=== PATIENT | female | born 1945 | race Caucasian/White ===

== ENCOUNTER → 2016-09-28 | Outpatient (CLI) | payer MEDICARE ==
--- NOTE | 2016-09-28 16:30 | US ---
EXAMINATION TYPE: US carotid duplex BILAT DATE OF EXAM: 09/28/2016 COMPARISON: NONE CLINICAL HISTORY: 71-year-old female I65.23 Stenosis of bilateral carotid arteries. Stenosis TECHNIQUE: Carotid duplex ultrasound examination. Indirect Doppler criteria was utilized. FINDINGS: Soria scale images show minimal to mild atherosclerotic change at the bifurcations. EXAM MEASUREMENTS: RIGHT: Peak Systolic Velocity (PSV) cm/sec ----- Right CCA: 109.3 ----- Right ICA: 76.6 ----- Right ECA: 93.9 ICA/CCA ratio: 0.7 RIGHT: End Diastole cm/sec ----- Right CCA: 36.5 ----- Right ICA: 26.5 ----- Right ECA: 22.7 LEFT: Peak Systolic Velocity (PSV) cm/sec ----- Left CCA: 73.4 ----- Left ICA: 83.1 ----- Left ECA: 85.1 ICA/CCA ratio: 1.1 LEFT: End Diastole cm/sec ----- Left CCA: 30.5 ----- Left ICA: 33.2 ----- Left ECA: 15.9 VERTEBRALS (direction of flow): Right Vertebral: Antegrade Left Vertebral: Antegrade IMPRESSION: No hemodynamically significant stenosis appreciated in either internal carotid artery. Criteria for Assigning % of Stenosis / Diameter reduction (Estimation based on the indirect measurements of the internal carotid artery velocities (ICA PSV). 1. Normal (no stenosis)=ICA PSV < 125 cm/s: ratio < 2.0: ICA EDV<40 cm/s. 2. Less than 50% stenosis=ICA PSV < 125 cm/s: ratio < 2.0: ICA EDV<40 cm/s. 3. 50 to 69% stenosis=ICA PSV of 125 to 230 cm/s: ration 2.0 ? 4.0: ICA EDV 40-100 cm/s. 4. Greater than 70% stenosis to near occlusion= ICA PSV > 230 cm/s: ratio > 4.0: ICA EDV > 100 cm/s. 5. Near occlusion= ICA PSV velocities may be low or undetectable: variable ratio and ICA EDV. 6. Total occlusion=unable to detect flow.
--- NOTE | 2016-09-28 17:32 | ECHOF ---
Referral Reason:I65.23 Stenosis of bilateral carotid arteries MEASUREMENTS -------- HEIGHT: 172.7 cm WEIGHT: 99.8 kg BP: 132/63 RVIDd: 3.0 cm (< 3.3) IVSd: 1.0 cm (0.6 - 1.1) LVIDd: 4.1 cm (3.9 - 5.3) LVPWd: 1.1 cm (0.6 - 1.1) IVSs: 1.7 cm LVIDs: 2.8 cm LVPWs: 1.3 cm LA Diam: 3.8 cm (2.7 - 3.8) LAESV Index (A-L): 23.79 ml/m Ao Diam: 3.0 cm (2.0 - 3.7) AV Cusp: 2.0 cm (1.5 - 2.6) MV EXCURSION: 13.991 mm (> 18.000) MV EF SLOPE: 37 mm/s (70 - 150) EPSS: 0.5 cm MV E Mendoza: 0.95 m/s MV DecT: 148 ms MV A Mendoza: 1.15 m/s MV E/A Ratio: 0.83 AV maxP.52 mmHg AV maxP.52 mmHg AV meanP.32 mmHg RAP: 5.00 mmHg RVSP: 15.28 mmHg FINDINGS -------- Sinus rhythm. This was a technically good study. The left ventricular size is normal. There is borderline concentric left ventricular hypertrophy. Overall left ventricular systolic function is normal with, an EF between 60 - 65 %. The right ventricle is normal in size and function. Normal LA size by volume 22+/-6 ml/m2. The right atrium is normal in size. There is mild aortic valve sclerosis. Peak/mean gradient across the Aortic Valve is 14.52mmHg / 6.32mmHg. The mitral valve leaflets are mildly thickened. Trace tricuspid regurgitation present. Right ventricular systolic pressure is normal at < 35 mmHg. The pulmonic valve was not well visualized. The aortic root size is normal. Normal inferior vena cava with normal inspiratory collapse consistent with estimated right atrial pressure of 5 mmHg. The pericardium is normal. CONCLUSIONS -------- 1. Sinus rhythm. 2. Peak/mean gradient across the Aortic Valve is 14.52mmHg / 6.32mmHg. 3. The mitral valve leaflets are mildly thickened. 4. Trace tricuspid regurgitation present. 5. Right ventricular systolic pressure is normal at < 35 mmHg. 6. The pulmonic valve was not well visualized. 7. The aortic root size is normal. 8. Normal inferior vena cava with normal inspiratory collapse consistent with estimated right atrial pressure of 5 mmHg. 9. The pericardium is normal. 10. This was a technically good study. 11. The left ventricular size is normal. 12. There is borderline concentric left ventricular hypertrophy. 13. Overall left ventricular systolic function is normal with, an EF between 60 - 65 %. 14. The right ventricle is normal in size and function. 15. Normal LA size by volume 22+/-6 ml/m2. 16. The right atrium is normal in size. 17. There is mild aortic valve sclerosis. INTERNAL MEDICINE VETERINARY TECHNICIAN: Mela Cash RDCS
== END | disposition home or self-care (01) ==
LOC: RADECHMAIN 14:58
PROVIDERS: ATTEND Internal Medicine
DX: I65.23 Occlusion and stenosis of bilateral carotid arteries (principal); I08.2 Rheumatic disorders of both aortic and tricuspid valves
CPT/HCPCS: 93306; 93880

== ENCOUNTER → 2018-12-17 | Outpatient (CLI) | payer MEDICARE ==
--- NOTE | 2018-12-17 15:15 | US ---
EXAMINATION TYPE: US pelvic complete DATE OF EXAM: 12/17/2018 COMPARISON: US CLINICAL HISTORY: N95.0 POST MENOPAUSAL BLEEDING. Pt states light vaginal bleeding recently x 1 day, pt not on HRT's TECHNIQUE: Transabdominal (TA). Transabdominal sonographic images of the pelvis were acquired. Date of LMP: age 47 EXAM MEASUREMENTS: Uterus: 7.3 x 2.5 x 4.5 cm Endometrial Stripe: 0.3 cm Right Ovary: 1.1 x 0.8 x 1.3 cm Left Ovary: 1.4 x 0.6 x 1.4 cm 1. Uterus: Anteverted Appeared wnl 2. Endometrium: wnl 3. Right Ovary: wnl 4. Left Ovary: wnl 5. Bilateral Adnexa: wnl 6. Posterior cul-de-sac: wnl IMPRESSION: Normal pelvic ultrasound
== END | disposition home or self-care (01) ==
LOC: RADUSWWP 12:00
PROVIDERS: ATTEND Obstetrics & Gynecology
DX: N95.0 Postmenopausal bleeding (principal)
CPT/HCPCS: 76856

== ENCOUNTER → 2022-02-22 | Outpatient (CLI) | payer MEDICARE | END | disposition home or self-care (01) | LOC: RADMAMWWP 07:54 | PROVIDERS: ATTEND Internal Medicine | DX: Z53.9 Procedure and treatment not carried out, unspecified reason (principal) ==

== ENCOUNTER → 2022-03-01 | Outpatient (CLI) | payer MEDICARE ==
--- NOTE | 2022-03-01 10:58 | MM ---
Reason for Exam: Screening (asymptomatic). Last screening mammogram was performed 12 month(s) ago. Patient History: Menarche at age 13. First Full-Term at age 24. Postmenopausal. Patient has history of breast feeding. Estrogen and Progesterone for 2 months. Risk Values: Rina 5 year model risk: 1.7%. NCI Lifetime model risk: 3.1%. Prior Study Comparison: 02/26/2020 Bilateral MG screening mammo w CAD - 2, [facility]. 02/28/2021 Bilateral MG screening mammo w CAD - 2, [facility]. Tissue Density: There are scattered fibroglandular densities. Findings: Analyzed By CAD. Chronic nodularity on the left. Appearance is unchanged. Additional areas of asymmetric density on the right are also unchanged. Benign secretory calcifications on the right. No significant change from prior exams. Overall Assessment: Benign, BI-RAD 2 Management: Screening Mammogram of both breasts in 1 year. 1. Patient should continue monthly self breast exams. 2. A clinical breast exam by your physician is recommended on an annual basis. 3. This exam should not preclude additional follow-up of suspicious palpable abnormalities. Electronically signed and approved by: Flor Perez M.D. Radiologist
== END | disposition home or self-care (01) ==
LOC: LABWHC1 10:10
PROVIDERS: ATTEND Internal Medicine
DX: Z12.31 Encounter for screening mammogram for malignant neoplasm of breast (principal); Z78.0 Asymptomatic menopausal state
CPT/HCPCS: 77063; 77067

== ENCOUNTER → 2022-08-30 | Outpatient (CLI) | payer MEDICARE ==
--- NOTE | 2022-08-30 17:04 | XR ---
EXAMINATION TYPE: XR shoulder complete 3 views RT DATE OF EXAM: 08/30/2022 Comparison: None Clinical History: 77-year-old female M25.511 R shoulder pain Findings: Mild degenerative change of the AC joint. Subacromial space is preserved. No tendinous or bursal calc ifications. Some rounded contour to the greater tuberosity though subacromial space is preserved. No acute fracture, subluxation, dislocation. Impression: Slight rounded contour to the greater tuberosity though with preserved subacromial space. If concern for underlying rotator cuff tear, MRI can be performed. No acute osseous abnormality seen.
--- NOTE | 2022-08-30 17:19 | XR ---
EXAMINATION TYPE: XR cervical spine w flex/ext DATE OF EXAM: 08/30/2022 COMPARISON: NONE HISTORY: 77 year-old female cervical spondylosis, pain radiating to the right shoulder. TECHNIQUE: 7 views including flexion and extension FINDINGS: No predental space widening or prevertebral soft tissue swelling. On the neutral lateral projection, alignment is maintained. There is trace grade 1 anterolisthesis at C4-C5 that slightly accentuated on flexion. It does not correct upon extension. The cervicothoracic junction is obscured by the patient 's shoulders and not assessed. Normal odontoid view. Facet and uncovertebral joint arthropathy partic ularly on the left contributing to at least moderate neuroforaminal narrowing at C4-C5. IMPRESSION: Uncovertebral joint and facet arthropathy particularly on the left. This contribute to at least moderate neural foraminal narrowing on the left at C4-C5. Degenerative grade 1 anterolisthesis at C4-C5 which slightly accentuates on flexion.
== END | disposition home or self-care (01) ==
LOC: RADXRMAIN 10:07
PROVIDERS: ATTEND Internal Medicine
DX: M75.111 Incomplete rotator cuff tear or rupture of right shoulder, not specified as traumatic (principal); M43.12 Spondylolisthesis, cervical region; M47.812 Spondylosis without myelopathy or radiculopathy, cervical region; M99.71 Connective tissue and disc stenosis of intervertebral foramina of cervical region
CPT/HCPCS: 72052

== ENCOUNTER → 2022-08-30 | Outpatient (CLI) | payer MEDICARE ==
--- NOTE | 2022-08-31 10:11 | US ---
EXAMINATION TYPE: US thyroid st tissue head/neck DATE OF EXAM: 08/30/2022 COMPARISON: NONE CLINICAL INDICATION: Female, 77 years old with history of E04.1 NONTOXIC SINGLE THYROID NODULE; f/u f or nodule, been on medication for years GLAND SIZE: Right Lobe: 4.0 x 1.2 x 1.4 cm Overall Parenchyma: heterogenous Left Lobe: 3.4 x 0.7 x 1.3 cm Overall Parenchyma: homogeneous Isthmus Thickness: 0.3 cm NODULES RIGHT: # of nodules measured on right: 1 1. 0.6 X 0.8 x 0.7 cm, mid , mixed cystic and solid, hypoechoic TR 3 nodule, which is wider than ta ll, with smooth margins, with echogenic foci/rim. Prior size: No prior LEFT: # of nodules measured on left: 0 ISTHMUS: # of nodules measured in the isthmus: 0 Bilateral neck scanned, no evidence of lymphadenopathy. IMPRESSION: Small heterogeneous gland, possible chronic hypothyroidism. There is a solitary 7 mm TR3 nodule on th e right.
== END | disposition home or self-care (01) ==
LOC: RADUSWWP 14:52
PROVIDERS: ATTEND Internal Medicine Endocrinology, Diabetes & Metabolism
DX: E04.1 Nontoxic single thyroid nodule (principal)
CPT/HCPCS: 76536

== ENCOUNTER → 2022-08-30 | Outpatient (CLI) | payer MEDICARE ==
[2022-08-31 02:58] LABS: T4, Free (Free Thyroxine) 1.68 ng/dL (0.80-1.80)
== END | disposition home or self-care (01) ==
LOC: LABWHC1 15:25
PROVIDERS: ATTEND Internal Medicine Endocrinology, Diabetes & Metabolism
DX: E04.1 Nontoxic single thyroid nodule (principal)
CPT/HCPCS: 36415; 84439; 84443

== ENCOUNTER → 2022-09-17 | Outpatient (CLI) | payer MEDICARE ==
--- NOTE | 2022-09-17 12:59 | MR ---
EXAMINATION TYPE: MR brain wo/w con DATE OF EXAM: 09/17/2022 COMPARISON: None HISTORY: Dizziness, unsteady gait. TECHNIQUE: Multiplanar, multisequence images of the brain and brainstem is performed without and with IV contras t, utilizing 10 mL intravenous Gadavist . FINDINGS: Diffusion weighted images demonstrate no evidence of a recent infarct or other diffusion ab normality. There is no extra-axial fluid collection. A few subcortical and periventricular white mat ter T2/FLAIR hyperintense foci identified. The ventricular system and cisternal spaces are normal in size and appearance. The brain volume is age appropriate. Enhancing venous structure within the inf erior right frontal lobe best appreciated on the postcontrast and susceptibility sequences (series 70 2, image 19 through 14). This appears to arise from the right internal cerebral vein. Midline structures demonstrate normal morphology. The craniocervical junction appears within normal limits. No enhancing mass is identified . The dural venous sinuses appear patent. The visualized sin uses are clear and the globes are intact. IMPRESSION: 1. No evidence for acute/subacute infarct. No enhancing masses are identified. 2. Nonspecific white matter changes likely related to chronic small vessel disease. 3. Developmental venous anomaly identified within the inferior right frontal lobe.
== END | disposition home or self-care (01) ==
LOC: RADMRIMAIN 11:22
PROVIDERS: ATTEND Internal Medicine
DX: R90.82 White matter disease, unspecified (principal); R27.0 Ataxia, unspecified
CPT/HCPCS: 70553; A9585

== ENCOUNTER → 2023-03-04 | Outpatient (CLI) | payer MEDICARE ==
--- NOTE | 2023-03-05 21:15 | MM ---
Reason for Exam: Screening (asymptomatic). Last screening mammogram was performed 12 month(s) ago. Patient History: Menarche at age 13. First Full-Term at age 24. Postmenopausal. Patient has history of breast feeding. Estrogen and Progesterone for 2 months. Risk Values: Rina 5 year model risk: 1.7%. NCI Lifetime model risk: 2.9%. Prior Study Comparison: 02/26/2020 Bilateral MG screening mammo w CAD - 2, [facility]. 02/28/2021 Bilateral MG screening mammo w CAD - 2, [facility]. 03/01/2022 Bilateral MG 3D screening mammo w/cad, [facility]. Tissue Density: There are scattered fibroglandular densities. Findings: Analyzed By CAD. There is chronic nodularity on the left. There is no suspicious group of microcalcifications or new suspicious mass in either breast. Overall Assessment: Benign, BI-RAD 2 Management: Screening Mammogram of both breasts in 1 year. . Patient should continue monthly self-breast exams. A clinical breast exam by your physician is recommended on an annual basis. This exam should not preclude additional follow-up of suspicious palpable abnormalities. Note on Rina scores and lifetime risk: 1. A Rina score greater than 3% is considered moderate risk. If this is the case, consider specialist referral to assess eligibility for a risk reducing agent. 2. If overall lifetime risk for the development of breast cancer is 20% or higher, the patient may qualify for future screening with alternating mammogram and breast MRI. Electronically signed and approved by: Flor Perez M.D. Radiologist
== END | disposition home or self-care (01) ==
LOC: RADMAMWWP 13:55
PROVIDERS: ATTEND Internal Medicine
DX: Z12.31 Encounter for screening mammogram for malignant neoplasm of breast (principal); Z78.0 Asymptomatic menopausal state
CPT/HCPCS: 77063; 77067

== ENCOUNTER → 2023-11-04 | Outpatient (CLI) | payer MEDICARE | END | disposition home or self-care (01) | LOC: LABWHC1 07:40 | PROVIDERS: ATTEND Internal Medicine Endocrinology, Diabetes & Metabolism | DX: E04.1 Nontoxic single thyroid nodule (principal) | CPT/HCPCS: 36415; 84439; 84443 ==

== ENCOUNTER → 2023-11-04 | Outpatient (CLI) | payer MEDICARE ==
--- NOTE | 2023-11-22 09:47 | US ---
Site ID [facility] Patient Amy Mckeon ID [id number] Age/Gender: 78Y, F Order # N/A Procedure US thyroid st tissue head/neck Date 11/04/2023 7:10:00 AM EXAMINATION TYPE: US thyroid st tissue head/neck DATE OF EXAM: 11/18/2023 COMPARISON: Thyroid ultrasound 08/30/2022 CLINICAL INDICATION: Female, 78 year old with history of thyroid nodule, follow-up. GLAND SIZE: Right Lobe: 3.4 x 1.3 x 1.2 cm Overall Parenchyma: heterogeneous Left Lobe: 3.2 x 0.9 x 1.3 cm Overall Parenchyma: heterogeneous Isthmus Thickness: 0.2 cm NODULES RIGHT: # of nodules measured on right: 1 1. 0.8 X 0.7 x 0.5 cm, mid , mixed cystic and solid, hypoechoic nodule, which is wider than tall, w ith smooth margins, with echogenic foci/rim. TR 3. Prior size: 0.6 x 0.8 x 0.7 cm LEFT: # of nodules measured on left: 0 ISTHMUS: # of nodules measured in the isthmus: 0 Bilateral neck scanned, no evidence of lymphadenopathy. IMPRESSION: Small heterogenous thyroid gland redemonstrated with stable 8 mm TR 3 right thyroid lobe nodule. No n ew or enlarging thyroid nodules.
== END | disposition home or self-care (01) ==
LOC: RADUSWWP 12:00
PROVIDERS: ATTEND Internal Medicine Endocrinology, Diabetes & Metabolism
DX: E04.1 Nontoxic single thyroid nodule
CPT/HCPCS: 76536; 93306

== ENCOUNTER → 2023-12-11 | Outpatient (CLI) | payer MEDICARE ==
--- NOTE | 2023-12-11 16:16 | US ---
EXAMINATION TYPE: US carotid duplex BILAT DATE OF EXAM: 12/11/2023 COMPARISON: US 2017 CLINICAL INDICATION: Female, 78 years old with history of [id number] CAROTID STENOSIS, BILAT; Hypertension , hyperlipidemia. TECHNIQUE: Carotid duplex ultrasound examination. Indirect Doppler criteria was utilized. FINDINGS: EXAM MEASUREMENTS: RIGHT: Peak Systolic Velocity (PSV) cm/sec ----- Right CCA: 68.0 ----- Right ICA: 85.3 ----- Right ECA: 70.3 ICA/CCA ratio: 1.3 RIGHT: End Diastole cm/sec ----- Right CCA: 18.2 ----- Right ICA: 27.0 ----- Right ECA: 7.5 LEFT: Peak Systolic Velocity (PSV) cm/sec ----- Left CCA: 77.3 ----- Left ICA: 86.7 ----- Left ECA: 69.4 ICA/CCA ratio: 1.1 LEFT: End Diastole cm/sec ----- Left CCA: 18.0 ----- Left ICA: 25.2 ----- Left ECA: 0.0 VERTEBRALS (direction of flow): Right Vertebral: Antegrade Left Vertebral: Antegrade Rhythm: Normal MASSAGE THERAPIST NOTES: *Plaque seen within bilateral ICAs. No elevated velocities. IMPRESSION: Less than 50% stenosis of the bilateral carotid bifurcations. Criteria for Assigning % of Stenosis / Diameter reduction (Estimation based on the indirect measurements of the internal carotid artery velocities (ICA PSV). 1. Normal (no stenosis)=ICA PSV < 125 cm/s: ratio < 2.0: ICA EDV<40 cm/s. 2. Less than 50% stenosis=ICA PSV < 125 cm/s: ratio < 2.0: ICA EDV<40 cm/s. 3. 50 to 69% stenosis=ICA PSV of 125 to 230 cm/s: ration 2.0 ? 4.0: ICA EDV 40-100 cm/s. 4. Greater than 70% stenosis to near occlusion= ICA PSV > 230 cm/s: ratio > 4.0: ICA EDV > 100 cm/s. 5. Near occlusion= ICA PSV velocities may be low or undetectable: variable ratio and ICA EDV. 6. Total occlusion=unable to detect flow. [facility], , 12/11/2023 4:13 PM
--- NOTE | 2023-12-11 21:27 | BD ---
EXAMINATION TYPE: Axial Bone Density DATE OF EXAM: 12/11/2023 CLINICAL HISTORY: 78 years old Female. ICD-10 CODE: M85.851 Osteopenia Height: 65.5 Weight: 224.4 FRAX RISK QUESTIONS: Alcohol (3 or more units per day): no Family History (Parent hip fracture): no Glucocorticoids (More than 3mos): no (Ex: prednisone, prednisolone, methylprednisolone, dexamethasone, and hydrocortisone). History of Fracture in Adulthood: no Secondary Osteoporosis: 1. Type 1 Diabetes: no 2. Hyperthyroidism: no 3. Menopause before 45: yes 4. Malnutrition: no 5. Chronic liver disease: no Rheumatoid Arthritis: no Current Tobacco Use: no RISK FACTORS HISTORY OF: Surgery to Spine/Hip(right/left)/Wrist (right/left): no MEDICATIONS: Thyroid Medications: levothyroxine How Lon years EXAM MEASUREMENTS: Bone mineral densitometry was performed using the Prize[employer] System. Bone mineral density as measured about the Lumbar spine is: ----- L1-L4(G/cm2): 1.583 T Score Values are as follows: ----- L1: 0.7 ----- L2: 2.7 ----- L3: 4.5 ----- L4: 5.6 ----- L1-L4: 3.4 Z Score Values are as follows: ----- L1: 1.4 ----- L2: 3.4 ----- L3: 5.2 ----- L4: 6.2 ----- L1-L4: 4.0 Bone mineral density : baseline Bone mineral density about the R hip (g/cm2): 1.144 Bone mineral density about the L hip (g/cm2): 1.124 T Score values are as follows: -----R Neck: -1.0 -----L Neck: -0.9 -----R Total: 1.1 -----L Total: 0.9 Z Score values are as follows: -----R Neck: 0.4 -----L Neck: 0.4 -----R Total: 2.2 -----L Total: 2.1 Bone mineral density : baseline FRAX%s: The graph provided illustrates a 10.6% chance for a major osteoporotic fx and a 1.9% chance f or the hips probability for fx in 10 years time. IMPRESSION: Normal (Values between +1 and -1 indicate normal bone mass). Consider repeating this study in 5 year s or sooner if there is some new clinical indication. NOTE: T-SCORE=SD OF THE YOUNG ADULT MEAN. [facility], , 12/11/2023 9:25 PM
== END | disposition home or self-care (01) ==
LOC: RADUSWWP 11-04 07:23
PROVIDERS: ATTEND Internal Medicine
DX: Z12.31 Encounter for screening mammogram for malignant neoplasm of breast (principal); M85.851 Other specified disorders of bone density and structure, right thigh; I65.23 Occlusion and stenosis of bilateral carotid arteries; I34.0 Nonrheumatic mitral (valve) insufficiency; E78.5 Hyperlipidemia, unspecified; M81.0 Age-related osteoporosis without current pathological fracture
CPT/HCPCS: 77080; 93880